=== PATIENT | male | born 1945 | race Caucasian/White ===

== ENCOUNTER 2023-10-11 16:16 | Inpatient (IN) | payer OTHER, MEDICAID ==
[~2023-10-11] VITALS: Ht 180.3 cm; Wt 107.5 kg
[2023-10-11 20:16] LABS: Basophils # (auto) 0.2 10 ^3/uL (0-0.2); Basophils % (auto) 0.7 % (0.0-2.0); Eosinophils # (auto) 0.1 10 ^3/uL (0-0.8); Eosinophils % (auto) 0.4 % (0.0-7.0); Hematocrit 38.9 % (41.0-53.0); Hemoglobin 12.7 g/dL (13.5-17.5); Lymphocytes % (auto) 8.3 % (10.0-50.0); Mean Corpuscular Hemoglobin 30.4 pg (28.0-32.0); Mean Corpuscular Hgb Conc. 32.5 g/dL (32.0-36.0); Mean Corpuscular Volume 93.5 fL (80.0-100.0); Monocytes # (auto) 3.8 10 ^3/uL (0-1.3); Monocytes % (auto) 15.9 % (0.0-12.0); Neutrophils # (auto) 17.8 10 ^3/uL (1.6-8.6); Neutrophils % (auto) 74.7 % (37.0-80.0); Nucleated Red Blood Cells % 0.4 %; Platelet Count (auto) 302 10^3/uL (140-450); Red Blood Cells 4.16 10^6/uL (4.5-5.90); Red Cell Distribution Width 16.6 % (11.8-14.3); White Blood Cell 23.9 10^3/uL (4.4-10.8)
[2023-10-11 20:20] VITALS: PULSE 84; RESP 18; O2SAT 96
[2023-10-11 20:24] LABS: Alanine Aminotransferase 12 U/L (7-40); Albumin 3.8 g/dL (3.2-4.8); Alkaline Phosphatase 95 U/L (46-116); Aspartate Aminotransferase 20 U/L (13-40); BUN/Creatinine Ratio 10.6 (10.0-20.0); Bilirubin, Total 0.3 mg/dL (0.2-1.0); Blood Urea Nitrogen 47 mg/dL (9-23); Chloride 94 mmol/L (98-107); Glucose 180 mg/dL (74-106); INR 1.19 (0.9-1.15); Partial Thromboplastin Time 32.2 SEC (24.5-34.5); Potassium 3.6 mmol/L (3.5-5.1); Prothrombin Time 12.5 sec (9.3-11.8); Sodium 129 mmol/L (136-145); Total Protein 7.6 g/dL (5.7-8.2)
[2023-10-11 20:25] LABS: Anion Gap 9 (5-15); Calcium 9.2 mg/dL (8.7-10.4); Carbon Dioxide 26 mmol/L (20-30)
[2023-10-11] MEDS: VANCOMYCIN 1GM/200ML 200 ML IV ONE (20:45)
[2023-10-11] MEDS: PIPERACILLIN-TAZOB 3.375GM 100 ML IV ONE (21:56)
[2023-10-12] VITALS (8 sets, daily range): BP systolic 90–114; BP diastolic 57–68; PULSE 68–79; RESP 17–19; TEMP 97.7–98.8; O2SAT 95–98
[2023-10-12] MEDS ORDERED: ONDANSETRON HCL 4 MG/2 ML VIAL IV PRN (00:45)
[2023-10-12] MEDS ORDERED: MORPHINE SULFATE INJ 2 MG/ml SYRG IV PRN (00:45)
[2023-10-12] MEDS ORDERED: VANCOMYCIN PER PHARMACY 0 MG IV SCH (00:45)
[2023-10-12] MEDS ORDERED: ACETAMINOPHEN 325 MG TAB PO PRN (00:45)
[2023-10-12] MEDS ORDERED: NITROGLYCERIN 0.4 MG SL TAB SL PRN (00:45)
[2023-10-12] MEDS ORDERED: DEXTROSE (50%) 50ML SYRG IV PRN (00:45)
[2023-10-12] MEDS ORDERED: APIX5TAB PO (04:47)
[2023-10-12] MEDS ORDERED: CALC10TA PO (04:47)
[2023-10-12] MEDS ORDERED: ALBU0.084 NEB (04:47)
[2023-10-12] MEDS ORDERED: CEPH250C PO (04:48)
[2023-10-12] MEDS ORDERED: ALL100T PO (04:48)
[2023-10-12] MEDS ORDERED: FINA5TAB4 PO (04:49)
[2023-10-12] MEDS ORDERED: TAMS0.4C39 PO (04:49)
[2023-10-12] MEDS ORDERED: FURO40TA4 PO (04:50)
[2023-10-12] MEDS ORDERED: INS7030I SC (04:51)
[2023-10-12] MEDS ORDERED: UREA1CRE EX (04:52)
[2023-10-12] MEDS ORDERED: TRIA0.5O2 EX (04:52)
[2023-10-12] MEDS ORDERED: SENN-199 PO (04:53)
[2023-10-12] MEDS ORDERED: CHOL200023 PO (04:53)
[2023-10-12] MEDS: InsuLIN REG 1unit/0.01ml Soln (100units/ml) SC SCH (06:21)
[2023-10-12] MEDS: ACCU-CHEK COMFORT CURVE STRIP VI SCH (06:21)
[2023-10-12] MEDS: SEVELAMER 800 MG TAB PO SCH (08:36)
[2023-10-12 09:21] LABS: Urine Bacteria FEW /hpf (None Seen); Urine Blood 2+ /uL (Negative); Urine Clarity Ex.Turbid (Clear); Urine Color Light-Orange (Yellow); Urine Hyaline Cast FEW /lpf (0 - 2); Urine Protein, UAD 3+ (Negative); Urine Specific Gravity 1.018 (1.001-1.035); Urine Urobilinogen Normal (Negative); Urine WBC 367 /hpf (0 - 3); Urine WBC Clumps PRESENT /hpf (None Seen)
[2023-10-12 09:21] LABS: Triglycerides 156 mg/dL (< 150)
[2023-10-12 09:22] LABS: LDL Cholesterol 69 mg/dL (< 100)
[2023-10-12 09:23] LABS: Cholesterol 136 mg/dL (< 200); HDL Cholesterol 31 mg/dL (40-59)
[2023-10-12] MEDS: PIPERACILLIN-TAZOB 2.25GM 50 ML IV SCH (09:41)
[2023-10-12 09:46] LABS: Hematocrit 39.4 % (41.0-53.0); Hemoglobin 12.8 g/dL (13.5-17.5); Mean Corpuscular Hemoglobin 30.6 pg (28.0-32.0); Mean Corpuscular Hgb Conc. 32.4 g/dL (32.0-36.0); Mean Corpuscular Volume 94.5 fL (80.0-100.0); Platelet Count (auto) 298 10^3/uL (140-450); Red Blood Cells 4.17 10^6/uL (4.5-5.90); Red Cell Distribution Width 16.6 % (11.8-14.3); White Blood Cell 16.1 10^3/uL (4.4-10.8)
[2023-10-12 09:51] LABS: Chloride 94 mmol/L (98-107); Sodium 132 mmol/L (136-145)
[2023-10-12 09:52] LABS: Anion Gap 11 (5-15); Calcium 9.3 mg/dL (8.7-10.4); Carbon Dioxide 27 mmol/L (20-30)
[2023-10-12 09:57] LABS: BUN/Creatinine Ratio 11.6 (10.0-20.0); Glucose 122 mg/dL (74-106)
[2023-10-12 09:59] LABS: Basophils % (manual) 0 (0.0-2.0); Blast Cells 0; Metamyelocytes % 0; Myelocytes % 0; Promyelocytes % 0; Reactive Lymphocytes 0
[2023-10-12 10:11] LABS: Blood Urea Nitrogen 57 mg/dL (9-23)
[2023-10-12 10:56] LABS: Band Neutrophils % (manual) 2; Lymphocytes % (manual) 9 (10.0-50.0)
[2023-10-12 10:57] LABS: Eosinophils % (manual) 2 (0-7); Monocytes % (manual) 27 (0-12); Platelet Estimate Adequate
[2023-10-12] MEDS: VANCOMYCIN 1GM/200ML 200 ML IV ONE (14:28)
[2023-10-12 22:06] LABS: Hematocrit 37.1 % (41.0-53.0); Hemoglobin 11.9 g/dL (13.5-17.5); Mean Corpuscular Hemoglobin 30.4 pg (28.0-32.0); Mean Corpuscular Hgb Conc. 32.1 g/dL (32.0-36.0); Mean Corpuscular Volume 94.7 fL (80.0-100.0); Platelet Count (auto) 271 10^3/uL (140-450); Red Blood Cells 3.91 10^6/uL (4.5-5.90); Red Cell Distribution Width 16.5 % (11.8-14.3)
[2023-10-12 22:08] LABS: Basophils % (manual) 0 (0.0-2.0); Blast Cells 0; Metamyelocytes % 0; Myelocytes % 0; Promyelocytes % 0; Reactive Lymphocytes 0
[2023-10-12 22:27] LABS: Alanine Aminotransferase 12 U/L (7-40); Albumin 3.5 g/dL (3.2-4.8); Alkaline Phosphatase 95 U/L (46-116); Anion Gap 11 (5-15); Aspartate Aminotransferase 19 U/L (13-40); BUN/Creatinine Ratio 12.9 (10.0-20.0); Bilirubin, Total < 0.2 mg/dL (0.2-1.0); Blood Urea Nitrogen 64 mg/dL (9-23); Calcium 8.7 mg/dL (8.7-10.4); Carbon Dioxide 25 mmol/L (20-30); Chloride 96 mmol/L (98-107); Glucose 161 mg/dL (74-106); Potassium 3.6 mmol/L (3.5-5.1); Sodium 132 mmol/L (136-145); Total Protein 6.9 g/dL (5.7-8.2)
[2023-10-12 23:12] LABS: Band Neutrophils % (manual) 1; Eosinophils % (manual) 3 (0-7); Lymphocytes % (manual) 13 (10.0-50.0); Monocytes % (manual) 20 (0-12)
[2023-10-12 23:13] LABS: Platelet Estimate Adequate
[2023-10-13] VITALS (9 sets, daily range): BP systolic 103–117; BP diastolic 61–74; PULSE 46–76; RESP 17–19; TEMP 97–98.7; O2SAT 94–100
[2023-10-13 06:36] LABS: Hematocrit 34.6 % (41.0-53.0); Hemoglobin 11.4 g/dL (13.5-17.5); Mean Corpuscular Hemoglobin 31.1 pg (28.0-32.0); Mean Corpuscular Volume 94.4 fL (80.0-100.0); Platelet Count (auto) 280 10^3/uL (140-450); Red Blood Cells 3.66 10^6/uL (4.5-5.90); Red Cell Distribution Width 16.3 % (11.8-14.3)
[2023-10-13 06:42] LABS: Alanine Aminotransferase 12 U/L (7-40); Alkaline Phosphatase 86 U/L (46-116); Anion Gap 11 (5-15); BUN/Creatinine Ratio 13.2 (10.0-20.0); Blood Urea Nitrogen 67 mg/dL (9-23); Calcium 8.7 mg/dL (8.7-10.4); Carbon Dioxide 26 mmol/L (20-30); Chloride 97 mmol/L (98-107); Glucose 160 mg/dL (74-106); Potassium 3.7 mmol/L (3.5-5.1); Sodium 134 mmol/L (136-145)
[2023-10-13 06:43] LABS: Albumin 3.5 g/dL (3.2-4.8); Aspartate Aminotransferase 18 U/L (13-40)
[2023-10-13 06:44] LABS: Bilirubin, Total 0.2 mg/dL (0.2-1.0); Total Protein 6.9 g/dL (5.7-8.2)
[2023-10-13 06:51] LABS: Basophils % (manual) 0 (0.0-2.0); Blast Cells 0; Metamyelocytes % 0; Myelocytes % 0; Promyelocytes % 0; Reactive Lymphocytes 0
[2023-10-13] MEDS ORDERED: SODIUM CHL 0.9% 1000 ML BAG XX ONE (07:00)
[2023-10-13 08:18] LABS: Band Neutrophils % (manual) 6; Eosinophils % (manual) 6 (0-7); Lymphocytes % (manual) 21 (10.0-50.0); Monocytes % (manual) 16 (0-12)
[2023-10-13 08:19] LABS: Platelet Estimate Adequate
[2023-10-13] MEDS: cefTRIAXone 1GM/50ML D5W 50 ML IV ONE (13:09)
[2023-10-14 01:00] VITALS: BP 109/70; PULSE 69; RESP 18; TEMP 98.9; O2SAT 95
[2023-10-14 05:00] VITALS: BP 116/71; PULSE 77; RESP 16; TEMP 98.7; O2SAT 99
[2023-10-14 07:23] LABS: Basophils # (auto) 0.1 10 ^3/uL (0-0.2); Eosinophils % (auto) 6.2 % (0.0-7.0); Hematocrit 37.1 % (41.0-53.0); Hemoglobin 12.1 g/dL (13.5-17.5); Lymphocytes # (auto) 3.1 10 ^3/uL (0.4-5.4); Lymphocytes % (auto) 20.1 % (10.0-50.0); Mean Corpuscular Hemoglobin 30.9 pg (28.0-32.0); Mean Corpuscular Hgb Conc. 32.7 g/dL (32.0-36.0); Mean Corpuscular Volume 94.5 fL (80.0-100.0); Monocytes # (auto) 2.3 10 ^3/uL (0-1.3); Monocytes % (auto) 14.8 % (0.0-12.0); Neutrophils % (auto) 57.9 % (37.0-80.0); Nucleated Red Blood Cells % 0.3 %; Platelet Count (auto) 266 10^3/uL (140-450); Red Blood Cells 3.93 10^6/uL (4.5-5.90); Red Cell Distribution Width 16.9 % (11.8-14.3); White Blood Cell 15.6 10^3/uL (4.4-10.8)
[2023-10-14 07:30] VITALS: PULSE 122; PULSE 60
[2023-10-14 07:30] LABS: Alanine Aminotransferase 14 U/L (7-40); Albumin 3.5 g/dL (3.2-4.8); Alkaline Phosphatase 95 U/L (46-116); Anion Gap 8 (5-15); Aspartate Aminotransferase 15 U/L (13-40); BUN/Creatinine Ratio 13.9 (10.0-20.0); Bilirubin, Total 0.2 mg/dL (0.2-1.0); Blood Urea Nitrogen 64 mg/dL (9-23); Calcium 8.7 mg/dL (8.7-10.4); Carbon Dioxide 29 mmol/L (20-30); Chloride 99 mmol/L (98-107); Glucose 122 mg/dL (74-106); Potassium 4.2 mmol/L (3.5-5.1); Sodium 136 mmol/L (136-145); Total Protein 6.7 g/dL (5.7-8.2)
[2023-10-14 09:00] VITALS: BP 118/58; PULSE 60; RESP 17; TEMP 98.1; O2SAT 97
[2023-10-14] MEDS: cefTRIAXone 1GM/50ML D5W 50 ML IV SCH (10:53)
[2023-10-14] MEDS: VANCOMYCIN 1GM/200ML 200 ML IV ONE (11:55)
[2023-10-14 13:00] VITALS: BP 119/67; PULSE 58; RESP 17; TEMP 98.3; O2SAT 99
[2023-10-14 17:08] VITALS: BP 116/73; PULSE 63; RESP 16; TEMP 97.9; O2SAT 100
[2023-10-14] MEDS ORDERED: FUROSEMIDE 40 MG TAB PO ONE (20:15)
[2023-10-14] MEDS ORDERED: APIXABAN 5 MG TAB PO SCH (22:00)
[2023-10-15] MEDS ORDERED: FUROSEMIDE 40 MG TAB PO SCH (06:00)
== END 2023-10-14 21:45 | disposition short-term general hospital (02) | DRG 314 ==
LOC: EDBD 16:16 → ER 16:16 → TELE 10-12 00:44 → TELE-EAST 10-12 03:12 → TELE-CENTR 10-14 07:59
PROVIDERS: ADMIT Internal Medicine Geriatric Medicine; ATTEND Internal Medicine Geriatric Medicine
PROC: 5A1D70Z Performance of Urinary Filtration, Intermittent, Less than 6 Hours Per Day (ICD-10-PCS; principal; 2023-10-13)
DX: T80.218A Other infection due to central venous catheter, initial encounter (principal); A41.9 Sepsis, unspecified organism; N18.6 End stage renal disease; E87.1 Hypo-osmolality and hyponatremia; I12.0 Hypertensive chronic kidney disease with stage 5 chronic kidney disease or end stage renal disease; J96.10 Chronic respiratory failure, unspecified whether with hypoxia or hypercapnia; D63.8 Anemia in other chronic diseases classified elsewhere; I48.91 Unspecified atrial fibrillation; E11.22 Type 2 diabetes mellitus with diabetic chronic kidney disease; Z99.2 Dependence on renal dialysis; Z79.899 Other long term (current) drug therapy; Z90.81 Acquired absence of spleen; Y84.8 Other medical procedures as the cause of abnormal reaction of the patient, or of later complication, without mention of misadventure at the time of the procedure; Y92.89 Other specified places as the place of occurrence of the external cause
CPT/HCPCS: 36415; 71045; 80048; 80053; 80061; 80202; 81001; 82306; 82565; 82607; 82962; 83605; 83880; 84443; 84484; 85007; 85025; 85027; 85610; 85730; 87040; 87077; 87086; 87088; 87147; 87186; 87205; 90935; 96365; 99291; G0378; J1815; J2543